=== PATIENT | male | born 1990 | race Caucasian/White ===

== ENCOUNTER → 2021-10-20 | Outpatient (CLI) | payer BC ==
[~2021-10-20] MED LIST: FLOMAX0.4 MG PO; PERCOCET 5/325 T1 EA PO; TORADOL 10 MG T10 MG PO
== END ==
LOC: NM 12:43
DX: R10.11 Right upper quadrant pain (principal); R11.0 Nausea
CPT/HCPCS: 78226; A9537

== ENCOUNTER 2022-01-02 01:46 | Emergency (ER) | payer BC ==
[2022-01-02 02:31] LABS: RED BLOOD COUNT 5.56 M/UL (4.20-5.50); WHITE BLOOD COUNT 9.7 K/UL (4.5-11.0)
[2022-01-02 02:57] LABS: BUN/CREATININE RATIO 16 (0-10)
== END 2022-01-02 04:50 | disposition home or self-care (01) ==
LOC: ER1 01:46
PROVIDERS: Family Medicine
DX: R07.89 Other chest pain (principal)
CPT/HCPCS: 71045; 80053; 82550; 82553; 84439; 84443; 84484; 85025; 85379; 85610; 85730; 93005; 99285